=== PATIENT | male | born 1985 | race Caucasian/White ===

== ENCOUNTER 2020-03-26 15:42 | Inpatient (IN) | payer MEDICAID, OTHER ==
[~2020-03-26] VITALS: Ht 172.7 cm; Wt 137.5 kg
[2020-03-26] MEDS ORDERED: DIVA125T32 PO (15:51)
[2020-03-26] MEDS ORDERED: CLOZ25TA5 PO (15:51)
[2020-03-26] MEDS: TUBERCULIN, PURIFIED PROTEIN DERIVATIVE 5 TU/0.1 ML SYRINGE ID ONE ×2 (17:00→21:45)
[2020-03-26 17:08] LABS: BASOPHILS % (AUTO) 0.8 % (0.0-2.0); EOSINOPHILS % (AUTO) 2.2 % (1.0-6.0); HEMATOCRIT 39.2 % (41-53); HEMOGLOBIN 13.2 g/dL (13.5-17.5); LYMPHOCYTES % (AUTO) 25.3 % (22.0-44.0); MEAN CORPUSCULAR HEMOGLOBIN 28.3 pg (26.0-34.0); MEAN CORPUSCULAR HGB CONC 33.6 G/dL (31.0-37.0); MEAN CORPUSCULAR VOLUME 84 fL (80-100); MONOCYTES # (AUTO) 0.9 K/uL (0.1-1.0); MONOCYTES % (AUTO) 11.2 % (2.0-9.0); NEUTROPHILS # (AUTO) 4.8 K/uL (1.8-7.7); NEUTROPHILS % (AUTO) 60.5 % (40.0-70.0); PLATELET COUNT (AUTO) 253 K/uL (150-450); RED BLOOD CELL COUNT(AUTO) 4.66 MIL/uL (4.50-5.90); RED CELL DISTRIBUTION WIDTH 13.5 % (11.5-14.5)
[2020-03-26 17:17] LABS: ANION GAP 9 mmol/L (8-16); CALCIUM, TOTAL 9.2 mg/dL (8.8-10.5); CARBON DIOXIDE 25 mmol/L (22-29); CHLORIDE 106 mmol/L (98-107); CREATININE 0.78 mg/dL (0.60-1.30); GLOMERULAR FILTR. RATE CALC > 60 mL/min (>60); GLUCOSE,RANDOM 120 mg/dL (70-110); POTASSIUM 4.3 mmol/L (3.5-5.1); SODIUM SERUM 140 mmol/L (136-145); UREA NITROGEN, BLOOD 8 mg/dL (7-18)
[2020-03-26 17:31] LABS: ALANINE AMINOTRANSFERASE 62 U/L (12-78); ALBUMIN 3.2 g/dL (3.4-5.0); ALKALINE PHOSPHATASE 76 U/L (46-116); ASPARTATE AMINOTRANSFERASE 26 U/L (15-37); BILIRUBIN,TOTAL 0.1 mg/dL (0.1-1.0); TOTAL PROTEIN, SERUM 7.1 g/dL (6.4-8.2); VALPROIC ACID 51 mcg/mL (50-100)
[2020-03-26 17:47] LABS: COVID AG,FIA SOURCE NASOPHARYNGEAL
[2020-03-26 20:26] LABS: AMPHET/METH SCREEN,URINE NEGATIVE (NEGATIVE); BARBITURATE SCREEN, URINE NEGATIVE (NEGATIVE); BENZODIAZEPINES SCREEN,URINE NEGATIVE (NEGATIVE); CANNABINOID SCREEN,URINE NEGATIVE (NEGATIVE); COCAINE SCREEN,URINE NEGATIVE (NEGATIVE); METHADONE SCREEN, URINE NEGATIVE (NEGATIVE); OPIATE SCREEN,URINE NEGATIVE (NEGATIVE)
[2020-03-26 20:29] LABS: PHENCYCLIDINE SCREEN,URINE NEGATIVE (NEGATIVE)
[2020-03-26] MEDS ORDERED: LORazepam 1 MG TABLET PO PRN (20:45)
[2020-03-26] MEDS ORDERED: ZOLPIDEM TARTRATE 10 MG TABLET PO PRN (20:45)
[2020-03-26] MEDS ORDERED: ChlorproMAZINE HCL 100 MG TABLET PO PRN (20:45)
[2020-03-26] MEDS ORDERED: INFLUENZA VIRUS VACCINE QVS 2020-21 (6MO+)/PF 60 MCG/0.5 ML SYRINGE IM ONE (21:00)
[2020-03-26] MEDS ORDERED: ACETAMINOPHEN 325 MG TABLET PO PRN (21:45)
[2020-03-26] MEDS ORDERED: GABAPENTIN 300 MG CAPSULE PO PRN (21:45)
[2020-03-26] MEDS ORDERED: OLANZapine 5 MG RAPDIS TABLET PO PRN (21:45)
[2020-03-26] MEDS ORDERED: MAG HYDROX/AL HYDROX/SIMETH ES 30 ML SUSPENSION UDCUP PO PRN (21:45)
[2020-03-26] MEDS ORDERED: GuaiFENesin/D-METHORPHAN [SUGAR-FREE] 200-20MG/10 ML SYRUP UDCUP PO PRN (21:45)
[2020-03-26] MEDS ORDERED: HydrOXYzine PAMOATE 50 MG CAPSULE PO PRN (21:45)
[2020-03-26] MEDS ORDERED: MAGNESIUM HYDROXIDE SUSPENSION 30 ML UDCUP PO PRN (21:45)
[2020-03-26] MEDS ORDERED: PROMETHAZINE HCL 25 MG TABLET PO PRN (21:45)
[2020-03-26 21:51] VITALS: BP 137/92
[2020-03-27 02:19] VITALS: BP 145/93
[2020-03-27 08:03] LABS: HEMOGLOBIN A1C 5.7 % (3.8-5.6)
[2020-03-27 08:20] LABS: CHOL/HDL RATIO 6.2 (4.2-7.3); FREE T4 (FREE THYROXINE) 0.88 ng/dL (0.76-1.46)
[2020-03-27 08:23] VITALS: BP 115/74
[2020-03-27] MEDS: NALTREXONE HCL 50 MG TABLET PO SCH (08:30)
[2020-03-27] MEDS: MULTIVITAMINS WITH MINERALS, THERAPEUTIC TABLET PO SCH (08:30)
[2020-03-27] MEDS: THIAMINE 100 MG TABLET PO SCH ×2 (08:30→17:11)
[2020-03-27] MEDS: FOLIC ACID 1 MG TABLET PO SCH (08:30)
[2020-03-27] MEDS: OMEGA-3/DHA/EPA/FISH OIL 1,000 MG CAPSULE PO SCH (08:30)
[2020-03-27] MEDS ORDERED: CloZAPine 25 MG TABLET PO SCH (09:00)
[2020-03-27] MEDS ORDERED: DIVALPROEX SODIUM 125 MG DR TABLET PO SCH (09:00)
[2020-03-27 16:18] VITALS: BP 121/86
[2020-03-27] MEDS ORDERED: METOPROLOL SUCCINATE 25 MG ER TABLET PO SCH (17:00)
[2020-03-27] MEDS: LevETIRAcetam 500 MG TABLET PO SCH (17:11)
[2020-03-27] MEDS: LITHIUM CARBONATE 300 MG CAPSULE PO SCH (17:11)
[2020-03-27] MEDS: TraZODone HCL 100 MG TABLET PO SCH (19:53)
[2020-03-27] MEDS: DIVALPROEX SODIUM 500 MG ER TABLET PO SCH (19:53)
[2020-03-27] MEDS: CloZAPine 100 MG TABLET PO SCH (19:54)
[2020-03-27] MEDS: ZOLPIDEM TARTRATE 10 MG TABLET PO PRN (21:05)
[2020-03-28 06:43] VITALS: BP 122/68
[2020-03-28] MEDS: LevETIRAcetam 500 MG TABLET PO SCH ×2 (08:41→16:10)
[2020-03-28] MEDS: METOPROLOL SUCCINATE 50 MG ER TABLET PO SCH ×2 (08:41→16:10)
[2020-03-28] MEDS: LITHIUM CARBONATE 300 MG CAPSULE PO SCH ×3 (08:42→16:10)
[2020-03-28] MEDS: THIAMINE 100 MG TABLET PO SCH ×2 (08:42→16:10)
[2020-03-28] MEDS: FOLIC ACID 1 MG TABLET PO SCH (08:42)
[2020-03-28] MEDS: OMEGA-3/DHA/EPA/FISH OIL 1,000 MG CAPSULE PO SCH (08:42)
[2020-03-28] MEDS: FLUoxetine HCL 20 MG CAPSULE PO SCH (08:42)
[2020-03-28] MEDS: NALTREXONE HCL 50 MG TABLET PO SCH (08:42)
[2020-03-28] MEDS: MULTIVITAMINS WITH MINERALS, THERAPEUTIC TABLET PO SCH (08:42)
[2020-03-28] MEDS ORDERED: CloZAPine 25 MG TABLET PO SCH (09:00)
[2020-03-28] MEDS ORDERED: OMEGA-3/DHA/EPA/FISH OIL 1,000 MG CAPSULE PO SCH (09:00)
[2020-03-28] MEDS ORDERED: DIVALPROEX SODIUM 500 MG DR TABLET PO SCH (09:00)
[2020-03-28 09:46] VITALS: BP 135/72
[2020-03-28 16:24] VITALS: BP 145/76
[2020-03-28] MEDS: CloZAPine 100 MG TABLET PO SCH (20:14)
[2020-03-28] MEDS: DIVALPROEX SODIUM 500 MG ER TABLET PO SCH (20:14)
[2020-03-28] MEDS: TraZODone HCL 100 MG TABLET PO SCH (20:14)
[2020-03-28] MEDS: ZOLPIDEM TARTRATE 10 MG TABLET PO PRN (22:02)
[2020-03-29 06:27] VITALS: BP 122/74
[2020-03-29] MEDS: METOPROLOL SUCCINATE 50 MG ER TABLET PO SCH ×2 (08:41→16:32)
[2020-03-29] MEDS: FOLIC ACID 1 MG TABLET PO SCH (08:41)
[2020-03-29] MEDS: NALTREXONE HCL 50 MG TABLET PO SCH (08:41)
[2020-03-29] MEDS: OMEGA-3/DHA/EPA/FISH OIL 1,000 MG CAPSULE PO SCH (08:41)
[2020-03-29] MEDS: FLUoxetine HCL 20 MG CAPSULE PO SCH (08:41)
[2020-03-29] MEDS: LITHIUM CARBONATE 300 MG CAPSULE PO SCH ×3 (08:41→16:32)
[2020-03-29] MEDS: LevETIRAcetam 500 MG TABLET PO SCH ×2 (08:41→16:32)
[2020-03-29] MEDS: THIAMINE 100 MG TABLET PO SCH ×2 (08:41→16:32)
[2020-03-29] MEDS: MULTIVITAMINS WITH MINERALS, THERAPEUTIC TABLET PO SCH (08:41)
[2020-03-29] MEDS ORDERED: CloZAPine 25 MG TABLET PO SCH ×2 (09:00→21:00)
[2020-03-29 10:30] VITALS: BP 120/77
[2020-03-29] MEDS: TraZODone HCL 100 MG TABLET PO SCH (20:07)
[2020-03-29] MEDS: DIVALPROEX SODIUM 500 MG ER TABLET PO SCH (20:07)
[2020-03-29] MEDS: CloZAPine 100 MG TABLET PO SCH (20:07)
[2020-03-29] MEDS: ZOLPIDEM TARTRATE 10 MG TABLET PO PRN (21:00)
[2020-03-30 00:57] VITALS: BP 123/67
[2020-03-30 08:44] VITALS: BP 122/78
[2020-03-30] MEDS: FOLIC ACID 1 MG TABLET PO SCH (08:47)
[2020-03-30] MEDS: LevETIRAcetam 500 MG TABLET PO SCH ×2 (08:47→16:32)
[2020-03-30] MEDS: THIAMINE 100 MG TABLET PO SCH ×2 (08:47→16:32)
[2020-03-30] MEDS: METOPROLOL SUCCINATE 50 MG ER TABLET PO SCH ×2 (08:47→16:32)
[2020-03-30] MEDS: LITHIUM CARBONATE 300 MG CAPSULE PO SCH ×3 (08:47→16:32)
[2020-03-30] MEDS: OMEGA-3/DHA/EPA/FISH OIL 1,000 MG CAPSULE PO SCH (08:47)
[2020-03-30] MEDS: NALTREXONE HCL 50 MG TABLET PO SCH (08:47)
[2020-03-30] MEDS: MULTIVITAMINS WITH MINERALS, THERAPEUTIC TABLET PO SCH (08:47)
[2020-03-30] MEDS ORDERED: BuPROPion HCL XL 150 MG ER TABLET PO SCH (09:00)
[2020-03-30] MEDS ORDERED: CloZAPine 25 MG TABLET PO SCH ×2 (09:00→21:00)
[2020-03-30 16:29] VITALS: BP 129/81
[2020-03-30] MEDS ORDERED: FLUO10CA21 PO (19:33)
[2020-03-30] MEDS: DIVALPROEX SODIUM 500 MG ER TABLET PO SCH (20:02)
[2020-03-30] MEDS: CloZAPine 100 MG TABLET PO SCH (20:02)
[2020-03-30] MEDS: TraZODone HCL 100 MG TABLET PO SCH (20:02)
[2020-03-30] MEDS: ZOLPIDEM TARTRATE 10 MG TABLET PO PRN (20:56)
[2020-03-31 01:44] VITALS: BP 139/90
[2020-03-31] MEDS ORDERED: LEVE500T53 PO (08:19)
[2020-03-31] MEDS ORDERED: OMEG-135 PO (08:19)
[2020-03-31] MEDS ORDERED: METO-558 PO (08:19)
[2020-03-31] MEDS: NALTREXONE HCL 50 MG TABLET PO SCH (08:48)
[2020-03-31] MEDS: FOLIC ACID 1 MG TABLET PO SCH (08:48)
[2020-03-31] MEDS: OMEGA-3/DHA/EPA/FISH OIL 1,000 MG CAPSULE PO SCH (08:48)
[2020-03-31] MEDS: THIAMINE 100 MG TABLET PO SCH (08:48)
[2020-03-31] MEDS: LevETIRAcetam 500 MG TABLET PO SCH (08:48)
[2020-03-31] MEDS: LITHIUM CARBONATE 300 MG CAPSULE PO SCH (08:48)
[2020-03-31] MEDS: MULTIVITAMINS WITH MINERALS, THERAPEUTIC TABLET PO SCH (08:48)
[2020-03-31] MEDS: METOPROLOL SUCCINATE 50 MG ER TABLET PO SCH (08:48)
[2020-03-31] MEDS ORDERED: FLUoxetine HCL 20 MG CAPSULE PO SCH (09:00)
[2020-03-31] MEDS ORDERED: CloZAPine 25 MG TABLET PO SCH (09:00)
[2020-03-31 09:09] VITALS: BP 129/85
[2020-04-02] MEDS ORDERED: CloZAPine 25 MG TABLET PO SCH (09:00)
[2020-04-02] MEDS ORDERED: CloZAPine 100 MG TABLET PO SCH (21:00)
[2020-04-03] MEDS ORDERED: CloZAPine 25 MG TABLET PO SCH (09:00)
[2020-04-03] MEDS ORDERED: CloZAPine 100 MG TABLET PO SCH (21:00)
[2020-04-04] MEDS ORDERED: CloZAPine 25 MG TABLET PO SCH (09:00)
[2020-04-04] MEDS ORDERED: CloZAPine 100 MG TABLET PO SCH (21:00)
[2020-04-05] MEDS ORDERED: CloZAPine 100 MG TABLET PO SCH (09:00)
[2020-04-07] MEDS ORDERED: CloZAPine 25 MG TABLET PO SCH (09:00)
[2020-04-07] MEDS ORDERED: CloZAPine 100 MG TABLET PO SCH (21:00)
[2020-04-08] MEDS ORDERED: CloZAPine 25 MG TABLET PO SCH (09:00)
[2020-04-08] MEDS ORDERED: CloZAPine 100 MG TABLET PO SCH (21:00)
[2020-04-09] MEDS ORDERED: CloZAPine 100 MG TABLET PO SCH ×2 (09:00→21:00)
== END 2020-03-31 13:40 | disposition home or self-care (01) | DRG 750 ==
LOC: EMS 15:42 → B2S 16:34
PROVIDERS: ADMIT Psychiatry & Neurology Psychiatry; ATTEND Psychiatry & Neurology Psychiatry
DX: F20.9 Schizophrenia, unspecified (principal); E66.01 Morbid (severe) obesity due to excess calories; F12.90 Cannabis use, unspecified, uncomplicated; G47.00 Insomnia, unspecified; F41.9 Anxiety disorder, unspecified; Z20.828 Contact with and (suspected) exposure to other viral communicable diseases; J44.9 Chronic obstructive pulmonary disease, unspecified; R45.851 Suicidal ideations; Z79.899 Other long term (current) drug therapy; Z81.8 Family history of other mental and behavioral disorders; Z87.891 Personal history of nicotine dependence; Z88.0 Allergy status to penicillin; Z68.42 Body mass index [BMI] 45.0-49.9, adult
CPT/HCPCS: 80159; 83036; 84439; 86592; 87426; 90686; G0480